=== PATIENT | female | born 1955 | race Caucasian/White ===

== ENCOUNTER 2024-01-17 10:42 | Emergency (ER) | payer MEDICARE, SELFPAY ==
[2024-01-17 10:45] VITALS: BP 173/107; PULSE 66; RESP 13; TEMP 36.6; O2SAT 96; BMI 29.8
[2024-01-17 10:54] VITALS: BP 213/111; PULSE 58; O2SAT 98
--- NOTE | 2024-01-17 11:12 | CT_ITS ---
PROCEDURE INFORMATION: Exam: CT Abdomen And Pelvis With Contrast Exam date and time: 01/17/2024 11:40 AM Age: 68 years old Clinical indication: Abdominal pain; Additional info: Subacute L flank L CVA pain llq pain TECHNIQUE: Imaging protocol: Computed tomography of the abdomen and pelvis with contrast. Radiation optimization: All CT scans at this facility use at least one of these dose optimization techniques: automated exposure control; mA and/or kV adjustment per patient size (includes targeted exams where dose is matched to clinical indication); or iterative reconstruction. Contrast material: ISOVUE; Contrast volume: 75 ml; Contrast route: IV; COMPARISON: No relevant prior studies available. FINDINGS: Lungs: No consolidation, lung nodules, or pleural effusions. Liver: No mass. No evidence of fat deposition. No surrounding fluid. Gallbladder and biliary ducts: No calcified stones or wall thickening. No ductal dilation. Pancreas: No masses. No ductal dilation. Spleen: No splenomegaly. No masses or surrounding fluid. Adrenal glands: No mass. Kidneys and ureters: No hydronephrosis, calcified stones, or masses. Stomach and bowel: No intestinal masses, bowel wall thickening, or abnormal luminal dilatation. Diverticula are present in the sigmoid colon without evidence of diverticulitis. Appendix: No evidence of appendicitis. Intraperitoneal space: No free air. No masses or significant fluid collection. Vasculature: No abdominal aortic aneurysm. No other significant abnormalities. Lymph nodes: No enlarged lymph nodes. Urinary bladder: No masses or asymmetric wall thickening. Reproductive: Surgical clips superimposed upon the right and left cornua of the uterus. Bones/joints: No acute fracture or bone lesions. Soft tissues: No masses or other abnormalities. IMPRESSION: 1. No acute findings in the abdomen and pelvis. No tract abnormalities. 2. Mild diverticulosis in the sigmoid colon without evidence of diverticulitis.
--- NOTE | 2024-01-17 11:14 | [facility].EDGENADL ---
Discharge Plan Disposition Patient Disposition: Home, Self-Care Chief Complaint: Abdominal Pain Referrals Follow up/Referrals: Provider,Referral, MD [Primary Care Provider] - See instructions Activity Restrictions/Add. Instructions Additional Instructions/Restrictions: At this time it was felt you are safe to be discharged home. If new or worsening symptoms please do not hesitate to return the emergency department. Clinical Impressions Clinical Impression: Acute flank pain Instructions Patient Instructions: DI for Acute Abdominal Pain Discharge ED Provider: Keo [facility] General Adult HPI General Chief complaint: Abdominal Pain Stated complaint: lower abd pain, back pain Time Seen by Provider: 01/17/24 10:47 History of Present Illness HPI narrative: Patient is a 68-year-old female with no pertinent past medical history who presents emergency department for evaluation of abdominal pain. Onset was subacute, left CVA radiating through her left flank and left lower quadrant. She was seen at [facility] where she was diagnosed with urinary tract infection and given 7-day prescription for Keflex which her symptoms are refractory. She associated previous nausea, none currently without vomiting, no chest pain. Due to persistent symptoms she presents here for continued evaluation. Related Data Allergies Allergy/AdvReac Type Severity Reaction Status Date / Time shellfish derived Allergy Verified 01/17/24 11:17 [facility] Disclaimer: The information contained in this section may have been updated after the patient was seen, as this information can be updated by other users. Social History Smoking Status: Never smoker alcohol intake: never current occupational status: other Travel in the last 8 weeks: None ROS Obtained: Yes Systems reviewed as appropriate & no additional complaints except as documented Physical Exam General General appearance: alert and in no apparent distress Head Head exam: atraumatic and normocephalic Eye Eye exam: Present PERRL ENT ENT exam: Present mucous membranes moist Neck Neck exam: Present normal inspection Chest Chest inspection: Present normal inspection and symmetric chest wall rise Respiratory Respiratory exam: Present normal lung sounds bilaterally; Absent respiratory distress Cardiovascular Cardiovascular exam: Present regular rate and normal rhythm Abdominal Exam Abdominal exam: Present soft and tenderness (Left flank, left lower quadrant); Absent rebound Extremities Exam Extremities exam: Present normal inspection Back Exam Back exam: Present CVA tenderness (L) Neurological Exam Neurological exam: Present alert Psychiatric Psychiatric exam: Present normal affect Skin Skin exam: Present warm and dry Medical Decision Making Kade Inquiry Pt receiving controlled substance: No Vital Signs: 01/17/24 10:45 01/17/24 10:54 01/17/24 11:15 Temperature 97.9 F Temperature Source Oral Pulse Rate 58 L 68 Pulse Rate [Left Radial] 66 Respiratory Rate 13 Blood Pressure 213/111 H 188/105 H Blood Pressure [Right Arm] 173/107 H Blood Pressure Mean [Right Arm] 129 02 Sat by Pulse Oximetry 96 98 97 Oxygen Delivery Method Room Air Room Air Room Air 01/17/24 11:31 Temperature Temperature Source Pulse Rate 72 Pulse Rate [Left Radial] Respiratory Rate Blood Pressure 173/103 H Blood Pressure [Right Arm] Blood Pressure Mean [Right Arm] 02 Sat by Pulse Oximetry 98 Oxygen Delivery Method Room Air Lab Data Lab Results 01/17/24 11:03: WBC 7.7, RBC 4.87, Hgb 15.6, Hct 46.9, MCV 96.3, MCH 32.1 H, MCHC 33.3, RDW 14.2, Plt Count 335, MPV 8.1, Neut % (Auto) 58.8, Lymph % (Auto) 33.7, [place] % (Auto) 3.7, Eos % (Auto) 1.9, Baso % (Auto) 1.9, Neut # (Auto) 4.5, Lymph # (Auto) 2.6, [place] # (Auto) 0.3, Eos # (Auto) 0.2, Baso # (Auto) 0.1, Sodium 137, Potassium 4.4, Chloride 103, Carbon Dioxide 25, Anion Gap 13.4, BUN 15, Creatinine 0.90, Estimated GFR 62, Est GFR ( Amer) 75, Glucose 96, Calcium 10.3 H, Total Bilirubin 0.7, AST 42 H, ALT 30, Alkaline Phosphatase 96, Total Protein 8.4 H, Albumin 4.5, Globulin 3.9 H, Albumin/Globulin Ratio 1.2, Lipase 72, Urine Color Yellow, Urine Appearance Clear, Urine pH 6.5, Ur Specific [place] <= 1.005, Urine Protein Negative, Urine Glucose (UA) Negative, Urine Ketones Negative, Urine Blood Negative, Urine Nitrate Negative, Urine Bilirubin Negative, Urine Urobilinogen 0.2, Ur Leukocyte Esterase Negative, Urine WBC Occasional, Ur Squamous Epith Cells Occasional 01/17/24 11:03 01/17/24 11:03 Orders (Tests/Meds): ED MEDICATIONS Generic Name Dose Route Start Last Admin Trade Name Christiana PRN Reason Stop Dose Admin Sodium Chloride 10 ml 01/17/24 11:51 01/17/24 11:54 Sodium Chloride 0.9% 10ml Syr (Rad Only) IV 02/16/24 11:50 10 ml NEEDED PRN Administration Maintain IV Site Discontinued Medications Generic Name Dose Route Start Last Admin Trade Name Christiana PRN Reason Stop Dose Admin Acetaminophen 1,000 mg 01/17/24 11:13 01/17/24 11:35 Acetaminophen 1,000mg/100ml Vial IV 01/17/24 11:14 1,000 mg ONCE ONE Administration Lactated Ringer's 1,000 mls @ 999 mls/hr 01/17/24 11:13 01/17/24 11:36 Lactated Ringer's 1000 Ml Bag IV 01/17/24 12:13 999 mls/hr .Q1H1M ONE Administration Iopamidol 75 ml 01/17/24 11:51 01/17/24 11:54 Iopamidol-370 (76%);100ml Bottle IV 01/17/24 11:52 75 ml ONCE ONE Administration Ketorolac Tromethamine 30 mg 01/17/24 11:13 01/17/24 11:35 Ketorolac 30mg/Ml Vial IV 01/17/24 11:14 30 mg ONCE ONE Administration ORDERS Category Date Time Status CT abdomen pelvis w con Stat Cat Scan 01/17/24 11:12 Completed CBC w/Auto Diff [Complete Blood Count Auto Diff] Stat Lab 01/17/24 11:03 Completed CMP [Comprehensive Metabolic Panel] Stat Lab 01/17/24 11:03 Completed Lipase Stat Lab 01/17/24 11:03 Completed UA [Urinalysis and Microscopic] Stat Lab 01/17/24 11:03 Completed Medical Decision Narrative: In summary patient is a 68-year-old female past medical history described above who presents emergency department for evaluation of abdominal pain in the setting of urinary tract infection with refractory symptoms status post Keflex administration. Patient is hemodynamically stable nontoxic-appearing upon arrival, afebrile. Differential diagnosis includes worsening urinary tract infection, pyelonephritis, ureterolithiasis, among others. Workup be conducted with hematologic labs, urinalysis, CT abdomen pelvis IV contrast. Initial inventions include crystalloid bolus, multimodal pain control. Initial workup reviewed by me, hematologic labs are nonactionable, no leukocytosis or anemia, no WILLARD or critical electrolyte abnormality, urinalysis interpreted by me and not consistent with infection. CT of the abdomen pelvis shows diverticulosis without evidence of diverticulitis. No acute findings. On repeat evaluation patient was well-appearing however did have persistent symptoms. At this point it was felt that all emergent causes have been ruled out with her left flank pain and she is appropriate for outpatient management at this time. It may be that she is having radicular pain from her mid to lower thoracic spine. She does not have any rash suggestive of shingles however she was instructed to monitor for rash over the coming days. If symptoms persist past the subacute stage she is to follow-up with her family doctor for continued evaluation. Critical Care Critical Care Time Critical Care Time: No
[2024-01-17 11:15] VITALS: BP 188/105; PULSE 68; O2SAT 97
[2024-01-17 11:16] LABS: Microscopic, Urine URINE MICROSCOPIC (MICROSCOPIC)
[2024-01-17 11:24] LABS: Basophils # 0.1 K/mm3 (0-0.2); Basophils % 1.9 % (0.1-2.0); Eosinophils # 0.2 K/mm3 (0.0-0.4); Eosinophils % 1.9 % (0.1-12.0); Hematocrit 46.9 % (37.0-47.0); Hemoglobin 15.6 g/dL (12.2-16.2); Lymphocytes # 2.6 K/mm3 (0.7-4.5); Lymphocytes % 33.7 % (10-50); Mean Corpuscular HGB Conc 33.3 g/dL (31.8-35.4); Mean Corpuscular Hemoglobin 32.1 pg (27.0-31.2); Mean Corpuscular Volume 96.3 fl (81-99); Mean Platelet Volume 8.1 fl (7.4-10.4); Monocytes # 0.3 K/mm3 (0.1-1.0); Monocytes % 3.7 % (1.7-9.3); Neutrophils # 4.5 K/mm3 (1.8-7.8); Neutrophils % 58.8 % (37.0-80.0); Platelet Count 335 K/mm3 (142-424); Red Blood Count 4.87 M/mm3 (4.20-5.40); Red Cell Distribution Width 14.2 % (11.5-17.5); White Blood Count 7.7 K/mm3 (4.8-10.8)
[2024-01-17 11:25] LABS: Appearance,Urine CLEAR (Clear); Bilirubin,Urine Negative (Negative); Blood, Urine Negative (Negative); Color,Urine YELLOW (Yellow); Glucose,Urine (UA) Negative (Negative); Ketones,Urine Negative (Negative); Leukocyte Esterase,Urine Negative (Negative); Nitrate,Urine Negative (Negative); PH,Urine 6.5 (5.0-8.5); Protein,Urine Negative (Negative); Specific Gravity, Urine <= 1.005 (1.005-1.030); Urobilinogen,Urine 0.2 EU/dl (0.2)
[2024-01-17 11:26] LABS: Chloride 103 mmol/L (98-107); Potassium 4.4 mmoL/L (3.5-5.1); Sodium 137 mmol/L (136-145)
[2024-01-17 11:28] LABS: Alanine Aminotransferase 30 U/L (12-78); Alkaline Phosphatase 96 U/L (38-126); Aspartate Amino Transferase 42 U/L (14-36); Bilirubin,Total 0.7 mg/dl (0.2-1.3); Blood Urea Nitrogen 15 mg/dl (7-17); Estimated Glomerular Filt Rate 62 ml/min (>60); GFR (African American) 75 ML/MIN (>60)
[2024-01-17 11:29] LABS: Albumin Level 4.5 g/dl (3.5-5.0); Albumin/Globulin Ratio 1.2 (1.1-1.8); Anion Gap 13.4 mEq/L (5-15); Calcium 10.3 mg/dl (8.4-10.2); Carbon Dioxide 25 mmol/L (22.0-30.0); Globulin 3.9 g/dL (1.3-3.2); Glucose 96 mg/dl (74-100); Lipase 72 U/L (23-300); Total Protein,Serum 8.4 g/dl (6.3-8.2)
[2024-01-17 11:31] VITALS: BP 173/103; PULSE 72; O2SAT 98
[2024-01-17] MEDS: KETOROLAC 30MG/ML VIAL 30 MG IV (11:35)
[2024-01-17] MEDS: ACETAMINOPHEN 1,000MG/100ML VIAL 1000 MG IV (11:35)
[2024-01-17] MEDS: LACTATED RINGERS 1000ML 1,000 ML 999 ML IV (11:36)
[2024-01-17 11:54] LABS: Squamous Epithelial Cell,Urine Occasional #/hpf (0-5); WBC,Urine Occasional #/hpf (0-3)
[2024-01-17] MEDS: IOPAMIDOL-370 (76%);100ML BOTTLE 75 ML IV (11:54)
[2024-01-17] MEDS: SODIUM CHLORIDE 0.9% 10ML SYR (RAD ONLY) 10 ML IV (11:54)
[2024-01-17 12:51] VITALS: BP 195/72; PULSE 71; RESP 20; TEMP 36.6; O2SAT 98
== END 2024-01-17 12:51 | disposition home or self-care (01) ==
PROVIDERS: Emergency Provider Emergency Medicine
DX: R10.32 Left lower quadrant pain (principal); M54.59 Other low back pain
CPT/HCPCS: 74177; 80053; 81001; 83690; 85025; 96361; 96374; 96375; 99284; J0131; J1885; J7120; Q9967